=== PATIENT | male | born 1960 | race Caucasian/White ===

== ENCOUNTER 2017-01-31 08:33 | Emergency (ER) | payer OTHER ==
[2017-01-31 08:45] VITALS: RESP 20; O2SAT 100
[2017-01-31 09:44] LABS: RBC URINE 13 /hpf (0-3); URINE BACTERIA RARE (<OCC); URINE BILIRUBIN NEGATIVE (NEGATIVE); URINE BLOOD 3+ (NEGATIVE); URINE COLOR Straw (YELLOW); URINE GLUCOSE (UA) NORMAL (Normal); URINE KETONE NEGATIVE (NEGATIVE); URINE LEUKOCYTE ESTERASE 1+ Leu/uL (Negative); URINE PROTEIN NEGATIVE (NEGATIVE); URINE UROBILINOGEN NORMAL mg/dL (0.2-1.0); WBC CLUMPS RARE /hpf
[2017-01-31 10:09] LABS: WBC URINE 56 /hpf (0-5)
--- NOTE | 2017-01-31 10:19 | C.PDOC ---
History Of Present Illness 56 yr old male presents to the with complaint of hematuria since last night. Patient states its painless and has passed some clots. Reports similar episode 1 month ago, was seen in ED, had a normal CAT scan and was discharged on Cipro. Patient states the symptoms resolved with the use of Cipro in 1-2 days and has been fine till last night. Patient denies fever, chills, nausea, vomiting, abdominal pain, diarrhea, dysuria, incontinence, weakness or numbness. Time Seen by Provider: 01/31/17 08:43 Chief Complaint (Nursing): Male Genitourinary History Per: Patient History/Exam Limitations: no limitations Onset/Duration Of Symptoms: Days (1) Current Symptoms Are (Timing): Still Present Severity: None Quality Of Discomfort: denies: "Pain" Associated Symptoms: denies: Fever, Diarrhea, Back Pain Past Medical History Reviewed: Historical Data, Nursing Documentation, Vital Signs Vital Signs: Last Vital Signs Temp 98.4 F 01/31/17 10:28 Pulse 69 01/31/17 10:28 Resp 20 01/31/17 10:28 BP 139/86 01/31/17 10:28 Pulse Ox 100 01/31/17 11:15 - Medical History PMH: No Chronic Diseases Surgical History: Hernia Repair Family History: States: No Known Family Hx - Social History Hx Alcohol Use: Yes Hx Substance Use: No Review Of Systems Except As Marked, All Systems Reviewed And Found Negative. Constitutional: Negative for: Fever, Chills Gastrointestinal: Negative for: Nausea, Vomiting, Abdominal Pain, Diarrhea Genitourinary: Positive for: Hematuria. Negative for: Dysuria, Incontinence Neurological: Negative for: Weakness, Numbness Physical Exam - Physical Exam Appears: Well, Non-toxic, No Acute Distress Skin: Normal Color, Warm, Dry, No Rash Head: Atraumatic, Normacephalic Cardiovascular: Rhythm Regular, No Murmur Respiratory: Normal Breath Sounds, No Rales, No Rhonchi, No Wheezing Gastrointestinal/Abdominal: Normal Exam, Soft, No Tenderness, No Guarding, No Rebound Back: Normal Inspection, No CVA Tenderness Extremity: Normal ROM, No Swelling Neurological/Psych: Oriented x3, Normal Speech, Normal Motor ED Course And Treatment O2 Sat by Pulse Oximetry: 100 Medical Decision Making Medical Decision Making: PLAN: * Urinalysis UA now (+) wbc few rbc's Culture last month neg Will cover with abx as wbc's much higher today however pt urged to follow up with uro contact information given Disposition Counseled Patient/Family Regarding: Diagnosis, Need For Followup - Disposition Referrals: Nicolasa Giron MD [Staff Provider] - Disposition: HOME/ ROUTINE Disposition Time: 10:17 Condition: GOOD Prescriptions: Nitrofurantoin Macrocrystals [Macrobid] 1 cap PO BID #14 cap Instructions: Urinary Tract Infection in Men (ED) - Clinical Impression Clinical Impression: Hematuria - Scribe Statement The provider has reviewed the documentation as recorded by the Scribe Alison Mendes Provider Attestation: All medical record entries made by the Scribe were at my direction and personally dictated by me. I have reviewed the chart and agree that the record accurately reflects my personal performance of the history, physical exam, medical decision making, and the department course for this patient. I have also personally directed, reviewed, and agree with the discharge instructions and disposition.
[2017-01-31 10:30] VITALS: BP 139/86; PULSE 69; TEMP 98.4
== END 2017-01-31 10:28 | disposition home or self-care (01) ==
LOC: C.ER 08:33
DX: R31.9 Hematuria, unspecified (principal)

== ENCOUNTER 2017-02-21 11:46 | Emergency (ER) | payer SELFPAY ==
[2017-02-21 12:26] LABS: RBC URINE 17 /hpf (0-3); URINE BACTERIA RARE (<OCC); URINE BILIRUBIN NEGATIVE (NEGATIVE); URINE BLOOD 3+ (NEGATIVE); URINE COLOR Straw (YELLOW); URINE GLUCOSE (UA) NORMAL (Normal); URINE KETONE NEGATIVE (NEGATIVE); URINE LEUKOCYTE ESTERASE TRACE Leu/uL (Negative); URINE PROTEIN NEGATIVE (NEGATIVE); URINE UROBILINOGEN NORMAL mg/dL (0.2-1.0); WBC URINE 13 /hpf (0-5)
--- NOTE | 2017-02-21 12:51 | C.PDOC ---
History Of Present Illness 56-year-old male, presents to the emergency department with complaints of right- sided flank pain x2 days. States he has associated hematuria with blood clots, and has been seen in ED for similar symptoms several weeks ago. Patient reports that he was discharged on antibiotics and follow-up with urology, but has been unable to follow-up. Denies fevers, chills, shortness of breath, dysuria, frequency, or any other associated symptoms. No other complaints at this time. Time Seen by Provider: 02/21/17 12:13 Chief Complaint (Nursing): Male Genitourinary History Per: Patient History/Exam Limitations: no limitations Onset/Duration Of Symptoms: Intermittent Episodes Current Symptoms Are (Timing): Still Present Pain Scale Rating Of: 1 Alleviating Factors: None Recent travel outside of the [place]: No Additional History Per: Patient (Patient reports that he has no pain now only hematuria) Past Medical History Reviewed: Historical Data, Nursing Documentation, Vital Signs Vital Signs: Last Vital Signs Temp 98.2 F 02/21/17 16:22 Pulse 65 02/21/17 16:22 Resp 18 02/21/17 16:22 BP 113/72 02/21/17 16:22 Pulse Ox 100 02/21/17 16:22 Surgical History: Hernia Repair Family History: States: No Known Family Hx - Social History Hx Alcohol Use: Yes Hx Substance Use: No Review Of Systems Except As Marked, All Systems Reviewed And Found Negative. Constitutional: Negative for: Fever, Chills Cardiovascular: Negative for: Chest Pain Respiratory: Negative for: Shortness of Breath Gastrointestinal: Negative for: Vomiting Genitourinary: Positive for: Hematuria. Negative for: Dysuria, Scrotal Pain, Rash Musculoskeletal: Positive for: Back Pain Skin: Negative for: Rash Neurological: Negative for: Weakness, Numbness Physical Exam - Physical Exam Appears: Non-toxic, No Acute Distress Skin: Warm, Dry, No Rash Head: Atraumatic, Normacephalic Eye(s): bilateral: Normal Inspection Nose: Normal Oral Mucosa: Moist Lips: Normal Appearing Neck: Normal ROM Cardiovascular: Rhythm Regular Respiratory: Normal Breath Sounds, No Accessory Muscle Use Gastrointestinal/Abdominal: Soft, No Tenderness, No Guarding, No Rebound Extremity: Normal ROM Neurological/Psych: Oriented x3, Normal Speech ED Course And Treatment - Laboratory Results Result Diagrams: 02/21/17 12:49 02/21/17 12:49 O2 Sat by Pulse Oximetry: 99 (on RA) Pulse Ox Interpretation: Normal Progress Note: Results were discussed with the patient and was instructed that there is no UTI, but there is a ? lesion on the bladder and there is a strong need for urology follow up. Medical Decision Making Medical Decision Making: Plan: * CT Abd/Pel * CMP, Lipase * Urine Culture * Urinalysis Disposition - Disposition Referrals: [facility] [Outside] Matheus Martinez MD [Staff Provider] - Adelfo Giron MD [Staff Provider] - Disposition: HOME/ ROUTINE Disposition Time: 16:00 Condition: STABLE Additional Instructions: Follow up with the medical doctor within 1-2 days. return if worsened. Instructions: Acute Hematuria (ED) - Clinical Impression Clinical Impression: Cyst of left kidney, Hematuria - Scribe Statement The provider has reviewed the documentation as recorded by the Zacibmalena Mercedes All medical record entries made by the Scribe were at my direction and personally dictated by me. I have reviewed the chart and agree that the record accurately reflects my personal performance of the history, physical exam, medical decision making, and the department course for this patient. I have also personally directed, reviewed, and agree with the discharge instructions and disposition.
[2017-02-21 12:55] LABS: BASO % 0.7 % (0.0-2.0); EOS # 0.2 K/uL (0.0-0.7); EOS % 3.1 % (0.0-4.0); HEMATOCRIT 41.1 % (35.0-51.0); LYMPH # 0.9 K/uL (1.0-4.3); LYMPH % 12.5 % (20.0-40.0); MEAN CELL VOLUME 83.6 fL (80.0-94.0); MEAN CORPUSCULAR HEMOGLOBIN 27.2 pg (27.0-31.0); MEAN CORPUSCULAR HGB CONC 32.5 g/dL (33.0-37.0); MEAN PLATELET VOLUME 7.5 fL (7.2-11.7); MONO # 0.4 K/uL (0.0-0.8); MONO % 5.2 % (0.0-10.0); RED CELL DISTRIBUTION WIDTH 13.4 % (11.5-14.5); WHITE BLOOD COUNT 6.9 K/uL (4.8-10.8)
[2017-02-21 13:02] LABS: CHLORIDE 100 mmol/L (98-107)
[2017-02-21 13:03] LABS: POTASSIUM 3.9 mmol/L (3.6-5.2); SODIUM 139 mmol/L (132-148)
[2017-02-21 13:05] LABS: ALB/GLOB RATIO 1.3 (1.0-2.1); ALKALINE PHOSPHATASE 92 U/L (38-126); ALT/SGPT 19 U/L (21-72); AST/SGOT 27 U/L (17-59); BILIRUBIN,TOTAL 0.2 mg/dL (0.2-1.3); BLOOD UREA NITROGEN 13 mg/dL (9-20); CARBON DIOXIDE 24 mmol/L (22-30); GFR AFRICAN-AMERICAN > 60; GLUCOSE,RANDOM 122 mg/dL (75-110)
[2017-02-21 13:51] VITALS: TEMP 98.2
[2017-02-21] MEDS ORDERED: Iodixanol 320 MG/ML 100 ML BOTTLE IV ONE (13:59)
--- NOTE | 2017-02-21 15:33 | CT ---
PROCEDURE: CT Abdomen and Pelvis with Oral contrast. HISTORY: gross hematuria, COMPARISON: Comparison made with CT scan abdomen pelvis 12/19/2016 TECHNIQUE: Contiguous axial images of the abdomen and pelvis. . 100 cc Visipaque contrast material. Coronal and Sagittal reformats generated. Radiation dose: Total exam DLP = 218.74 mGy-cm. This CT exam was performed using one or more of the following dose reduction techniques: Automated exposure control, adjustment of the mA and/or kV according to patient size, and/or use of iterative reconstruction technique. FINDINGS: LOWER THORAX: Unremarkable. LIVER: Liver exhibits normal size. Mild fatty hepatic infiltration. . No gross lesion or ductal dilatation. GALLBLADDER AND BILE DUCTS: Unremarkable. PANCREAS: Unremarkable. No mass. No ductal dilatation. SPLEEN: Unremarkable. No splenomegaly. ADRENALS: Unremarkable. KIDNEYS AND URETERS: Re- demonstrated is a large approximately 4.8 cm partially exophytic cyst lower pole left kidney with minimal mural calcification. There may be a the thin septation along the inferior border adjacent to the mural calcification BLADDER: Urinary bladder is incompletely distended which may account for thick-walled appearance however muscular hypertrophy likely contributes. Cystitis not excluded. Note that the distinction between the wall thickness of the liver and pancreas is slightly poorly defined and therefore the possibility of a bladder wall lesion not completely excluded. REPRODUCTIVE: Prostate gland is enlarged with calcifications. Correlation with PSA recommended APPENDIX: Not identified. No secondary findings to suggest acute appendicitis. . BOWEL: Mild constipation. PERITONEUM: Unremarkable. No fluid collection. No free air. Fat containing left inguinal hernia LYMPH NODES: Unremarkable. No enlarged lymph nodes. VASCULATURE: Unremarkable. No aortic aneurysm. BONES: No fracture or destructive lesion. OTHER FINDINGS: None. IMPRESSION: Large cyst left kidney with minimal mural calcification and possible septated component. No evidence of nephrolithiasis or hydronephrosis . Questionable tiny cortical cyst mid/upper pole right kidney Urinary bladder is incompletely distended which may account for thick-walled appearance however muscular hypertrophy likely contributes. Cystitis not excluded. Note that the distinction between the wall thickness of the liver and pancreas is slightly poorly defined and therefore the possibility of a bladder wall lesion not completely excluded. Enlarged prostate gland. Correlation with PSA recommended Constipation. Left inguinal hernia
[2017-02-21 16:23] VITALS: BP 113/72; PULSE 65; RESP 18
[2017-02-21 18:21] VITALS: O2SAT 99
== END 2017-02-21 16:24 | disposition home or self-care (01) ==
LOC: C.ER 11:46
DX: N28.1 Cyst of kidney, acquired (principal); R31.9 Hematuria, unspecified
CPT/HCPCS: 74177; 80053; 81001; 83690; 85025; 87086; 99285; Q9967

== ENCOUNTER 2017-03-19 14:15 | Day surgery (SDC) | payer OTHER ==
[2017-03-18 14:06] VITALS: BMI 17.4
[~2017-03-19 14:15] MED LIST: Gentamicin 80 mg in 0.9% NS 80 MG/100 ML BAG IVPB ONE; Lactated Ringer's 1,000 ML IV ONE; Midazolam 2 MG/2 ML VIAL ONE; Propofol 10 mg/ml Inj (20 ML) ONE; cefTRIAXone IV 1 gm in Dextros 50 ML IVPB ONE
[2017-03-19 19:56] VITALS: TEMP 97.8; O2SAT 100
[2017-03-19 20:05] VITALS: BP 154/88; PULSE 79; RESP 13
--- NOTE | 2017-03-29 17:39 | HP ---
REASON FOR ADMISSION: Hematuria workup. A very pleasant gentleman who has significant voiding dysfunction, decreased flow of stream, nocturia . He is only 56 years old. He had gross hematuria. We discussed options for the patient. We discu ssed various options, risks, benefits, treatment alternatives. He is here now for cystoscope. We discussed doing it in the office. We tried even. The patient was very uncomfortable, so we broug ht him to the hospital. PAST MEDICAL AND SURGICAL HISTORY: As listed above. No history of an AR or CVA. SOCIAL HISTORY: Unremarkable. REVIEW OF SYSTEMS: As above. PHYSICAL EXAMINATION: GENERAL: Well-nourished male, in no apparent distress. VITAL SIGNS: . LUNGS: Clear. ABDOMEN: Overall soft, nontender. No flank mass. GENITALIA: Normal male phallus . LABORATORIES: See chart. DIAGNOSES: Hematuria, voiding dysfunction, decreased flow of stream, nocturia. A very pleasant 56-year-old gentleman. He is here for further diagnostic . The big issue for u s is the hematuria workup, make sure he does not have underlying malignancy upper tract imaging . Further plans will follow depending on what we find clinically. Risks, benefits . PLAN: 1. Antibiotic prophylaxis. 2. Cystoscope and then further plans will follow. Garfield Giron MD cc: [id number] TT: 03/29/2017 17:39:33 en
--- NOTE | 2017-03-31 07:45 | OP ---
PROCEDURE DATE: 03/19/2017 PREOPERATIVE DIAGNOSES: Hematuria, voiding dysfunction. POSTOPERATIVE DIAGNOSES: Hematuria, voiding dysfunction. PROCEDURE: Cystoscopy. SURGEON: Dr. Garfield Giorn. COMPLICATIONS: None. FINDINGS: Normal anterior urethra, no strictures. Ureter is moderately visually occlusive about 2-3 cm in length. There were no bladder cancers or tumors. INDICATIONS: See the history and physical for the details. Very pleasant gentleman here for the abo ve procedure. We discussed options including the office, etc. He is here now for the above procedur e. We also have upper tract imaging. He had had one episode of gross hematuria. DESCRIPTION OF PROCEDURE: After obtaining informed consent, the patient placed on the table, routine monitors placed, timeouts were called to confirm patient and positioning. Cystoscope via urethra. Anterior is normal. No strictures. , it was visually occlusive, about 2-3 cm. Bladder was ins pected carefully. No bladder tumors. . The patient tolerated the procedure without complication. Garfield Giron MD cc: [id number] TT: 03/29/2017 16:38:30 ms
== END 2017-03-19 15:30 | disposition home or self-care (01) ==
LOC: C.SDS 14:15
PROVIDERS: ATTEND Urology
DX: R31.9 Hematuria, unspecified (principal); N28.9 Disorder of kidney and ureter, unspecified; N20.9 Urinary calculus, unspecified
CPT/HCPCS: 52000; J1580; J1885; J7120

== ENCOUNTER 2017-04-13 11:12 | Day surgery (SDC) | payer OTHER ==
[2017-03-18 14:05] VITALS: BMI 17.4
[2017-04-13] MEDS ORDERED: Midazolam 2 MG/2 ML VIAL ONE (13:13)
[2017-04-13] MEDS ORDERED: Propofol 10 mg/ml Inj (20 ML) ONE (13:13)
[2017-04-13] MEDS ORDERED: ceFAZolin IV 1 gm in Dextrose 0 GM/0 ML BAG IVPB ONE (13:34)
[2017-04-13] MEDS ORDERED: Bupivacaine/Epi 0.25%-1:200,000 10 ml PF inj IJ ONE (13:35)
[2017-04-13] MEDS ORDERED: Lidocaine 1% Inj (20ml) ONE (13:35)
[2017-04-13] MEDS ORDERED: ceFAZolin IV 2 gm in Dextrose 1 GM/50 ML BAG IVPB ONE (14:05)
[2017-04-13] MEDS ORDERED: Lactated Ringer's 1,000 ML IV ONE (14:18)
[2017-04-13] MEDS ORDERED: HYDROmorphone 0.5 mg/0.5 ml ISec IVP PRN (14:58)
[2017-04-13] MEDS ORDERED: Dexamethasone 4 mg/1 ml IVP PRN (16:22)
--- NOTE | 2017-04-13 16:22 | PCM.SURG1 ---
Surgeon's Initial Post Op Note - Surgeon's Notes Surgeon: Dr Bianchi Student Services Advisor: Dr Ford PGY2 Type of Anesthesia: General Endo Pre-Operative Diagnosis: left recurrent inguinal hernia Operative Findings: as above Post-Operative Diagnosis: as above Operation Performed: laparoscopic totally extra-peritoneal left inguinal hernia repair with mesh Specimen/Specimens Removed: none Estimated Blood Loss: EBL {In ML}: 10 Blood Products Given: N/A Drains Used: No Drains Post-Op Condition: Good Date of Surgery/Procedure: 04/13/17 Time of Surgery/Procedure: 16:21
[2017-04-13] MEDS ORDERED: Lactated Ringer's 1,000 ML IV SCH (16:30)
[2017-04-13] MEDS: HYDROmorphone 0.5 mg/0.5 ml ISec IVP PRN ×3 (16:31→17:36)
[2017-04-13 19:32] VITALS: BP 128/63; PULSE 72; RESP 10; TEMP 98.2; O2SAT 99
--- NOTE | 2017-04-13 21:23 | OP ---
PROCEDURE DATE: 04/13/2017 INTRAOPERATIVE FINDINGS: The patient had the left recurrent direct and indirect inguinal hernia PREOPERATIVE DIAGNOSIS: Left recurrent inguinal hernia. POSTOPERATIVE DIAGNOSIS: Left recurrent inguinal hernia. PROCEDURE DONE: Laparoscopic Left recurrent inguinal hernia repair with mesh. SURGEON: Konstantin Bianchi MD RACK ROOM WORKER: Levi Ford, PGY-2 resident. ANESTHESIA: Local anesthesia plus GETA. ESTIMATED BLOOD LOSS: Around 10 mL. DRAINS: None. PATHOLOGY: None COMPLICATIONS: None. INTRAOPERATIVE STEPS: This 56-year-old male who was diagnosed with left recurrent inguinal hernia and the patient was consented for a laparoscopic left recurrent inguinal hernia repair with the mesh. Brought to the OR, placed supine on the operating table. After induction of anesthesia, a Rod catheter and an OG tube was placed. The abdomen was prepped and draped in the usual sterile fashion. Infraumbilical transverse incision was made. After incising skin and subcutaneous tissue, the fascia was incised and retrorectus dissection was done and a balloon dissector was placed and pneumo was created in extraperitoneal space. Two 5 mm ports were placed in the midline and the dissection was carried down medially in the space of Retzius and the pubic symphysis laterally to the lateral abdominal wall and the peritoneal sac and the superior and inferior epigastric artery was identified and the peritoneal sac was reduced back. The patient found to have direct and indirect both hernia , and after complete dissection of the peritoneal sac, the left anatomical mesh was implanted. After proper implantation of the mesh, the pneumo was deflated and the umbilical port site was closed in 2 layers, the fascia with 0 Vicryl interrupted sutures, the skin with a 4-0 Monocryl. Dry sterile dressing was applied. The patient tolerated the procedure well. Count of instruments and gauze was correct. There was no apparent complication. Konstantin Bianchi MD cc: [id number] TT: 04/13/2017 21:22:12 jerry MARIE
== END 2017-04-13 19:00 | disposition hospice, home (50) ==
LOC: C.SDS 11:12
PROVIDERS: ATTEND Surgery Surgical Critical Care
DX: K40.91 Unilateral inguinal hernia, without obstruction or gangrene, recurrent (principal); N39.0 Urinary tract infection, site not specified; N28.1 Cyst of kidney, acquired; Z98.890 Other specified postprocedural states; Z79.2 Long term (current) use of antibiotics
CPT/HCPCS: 49651; J0690; J1170; J1885; J2250; J2704; J3010; J7120

== ENCOUNTER 2018-10-21 11:54 | Emergency (ER) | payer OTHER ==
[2018-10-21 11:55] VITALS: BMI 17.4
[2018-10-21 12:11] VITALS: TEMP 98
--- NOTE | 2018-10-21 12:55 | C.PDOC ---
History Of Present Illness 58 y/o male, w/PMhx of hematuria and renal cysts presents to the ER complaining of hematuria with clots which has been present for the past 2 days.Patient states that he has associated intermittent right flank pain. He is not taking any medications for the pain. He notes that he had similar symptoms last year. At the time, he was diagnosed with a kidney cyst and had a negative cystoscopy performed by Dr. Chaitanya Giron. Currently, patient denies having abdominal pain, dysuria, frequency, nausea, vomiting, CP, SOB, fever, chills, testicular pain, testicular swelling, or any other associated symptoms. Time Seen by Provider: 10/21/18 12:10 Chief Complaint (Nursing): Male Genitourinary History Per: Patient History/Exam Limitations: no limitations Onset/Duration Of Symptoms: Days Current Symptoms Are (Timing): Still Present Severity: Moderate Past Medical History Reviewed: Historical Data, Nursing Documentation, Vital Signs Vital Signs: Last Vital Signs Temp 98 F 10/21/18 12:06 Pulse 97 H 10/21/18 12:06 Resp 18 10/21/18 12:06 BP 161/84 H 10/21/18 12:06 Pulse Ox 100 10/21/18 12:06 - Medical History PMH: No Chronic Diseases Denies: Chronic Kidney Disease Surgical History: Hernia Repair Family History: States: No Known Family Hx - Social History Hx Alcohol Use: Yes Hx Substance Use: No - Immunization History Hx Tetanus Toxoid Vaccination: No Hx Influenza Vaccination: No Hx Pneumococcal Vaccination: No Review Of Systems Except As Marked, All Systems Reviewed And Found Negative. Constitutional: Negative for: Fever, Chills Eyes: Negative for: Vision Change ENT: Negative for: Nose Congestion Cardiovascular: Negative for: Chest Pain, Palpitations Respiratory: Negative for: Cough, Shortness of Breath Gastrointestinal: Negative for: Nausea, Vomiting, Abdominal Pain (currently resolved), Diarrhea Genitourinary: Positive for: Hematuria. Negative for: Dysuria, Frequency Skin: Negative for: Rash Neurological: Negative for: Weakness, Numbness (right flank pain), Headache, Dizziness Physical Exam - Physical Exam Appears: Well, Non-toxic, No Acute Distress Skin: Normal Color, Warm, Dry Head: Atraumatic, Normacephalic Eye(s): bilateral: Normal Inspection, PERRL, EOMI Nose: Normal Oral Mucosa: Moist Throat: Normal Neck: Normal, Normal ROM, Supple Chest: Symmetrical Cardiovascular: Rhythm Regular Respiratory: Normal Breath Sounds, No Rales, No Rhonchi, No Wheezing Gastrointestinal/Abdominal: Normal Exam, Bowel Sounds (normal), Soft, No Tenderness, No Guarding, No Rebound Back: Normal Inspection, No CVA Tenderness, No Paraspinal Tenderness Extremity: Normal ROM, No Tenderness, Capillary Refill (<2s), No Deformity, No Swelling Extremity: Bilateral: Atraumatic, No Pedal Edema, Normal Color And Temperature, Normal ROM Pulses: Left Radial: Normal, Right Radial: Normal Neurological/Psych: Oriented x3, Normal Speech, Normal Cognition, Normal Cranial Nerves, Normal Motor, Normal Sensation Gait: Steady ED Course And Treatment - Laboratory Results Result Diagrams: 10/21/18 13:15 10/21/18 13:15 Lab Interpretation: Normal O2 Sat by Pulse Oximetry: 100 (RA) Pulse Ox Interpretation: Normal - CT Scan/US CT- Abd & Pelv. Other Rad Studies (CT/US): Read By Radiologist, Radiology Report Reviewed CT/US Interpretation: PROCEDURE: CT Abdomen and Pelvis without Oral or IV contrast. HISTORY: stone search; bilateral intermittent flank pain. COMPARISON: CT abdomen pelvis without and with IV contrast performed 09/09/17. TECHNIQUE: Contiguous axial images of the abdomen and pelvis. No oral or IV contrast administered. Coronal and Sagittal reformats generated and reviewed. Radiation dose: Total exam DLP = 239.73 mGy-cm. This CT exam was performed using one or more of the following dose reduction techniques: Automated exposure control, adjustment of the mA and/or kV according to patient size, and/or use of iterative reconstruction technique. FINDINGS: There is limited evaluation of the solid organs without the administration of IV contrast. LOWER THORAX: No visible consolidation, pleural effusion, or pneumothorax. LIVER: Unremarkable unenhanced appearance. GALLBLADDER AND BILE DUCTS: Unremarkable unenhanced appearance. PANCREAS: Unremarkable unenhanced appearance. SPLEEN: Unremarkable unenhanced appearance. ADRENALS: Unremarkable unenhanced appearance. KIDNEYS AND URETERS: No hydronephrosis or obstructing renal calculus. Indeterminate 4 x 5.4 cm low-density mass arising from the lower pole kidney, with associated calcification. BLADDER: Soft tissue or debris within the dependent portion of the urinary bladder. Urinary bladder appears thick walled despite distension. REPRODUCTIVE: Enlarged prostate gland containing calcifications. APPENDIX: The appendix appears within normal limits of caliber. No secondary signs of acute appendicitis. BOWEL: The stomach is nondi stended. Lack of oral contrast limits evaluation for bowel pathology. The bowel loops appear within normal limits of caliber without evidence of intestinal obstruction. PERITONEUM: No significant free fluid. No definite free air. LYMPH NODES: No bulky lymphadenopathy identified. VASCULATURE: Atherosclerotic calcifications of the aorta. No aortic aneurysm. BONES: No acute osseous abnormality is detected. OTHER FINDINGS: Surgical clips left inguinal region. IMPRESSION: Soft tissue or debris within the dependent portion of the urinary bladder. Urinary bladder appears thick walled despite distension. Recommend correlation with urinalysis and or cystoscopy if indicated. Indeterminate 4 x 5.4 cm low-density mass arising from the lower pole kidney, with associated calcification. Enlarged prostate gland. Recommend correlation with PSA. Additional findings as above. Medical Decision Making Medical Decision Making: Plan: --Labs --UA --Urine Culture --CT- Abd & Pelv Spoke with Dr. Henriquez, about case and diagnostic testing results, advises that patient should followup outpatient for cystoscopy. Diagnostic testing results and plan of care discussed with patient, and strict instructions given regarding prescriptions, importance of follow up, and signs to return to Emergency Department, to include worsening pain, fever, chills, or any other new/worsening symptoms. Patient verbalizes understanding of discussion. Patient A&Ox3, ambulating with steady gait, stable for discharge home. Disposition - Disposition Referrals: Adelfo Giron MD [Staff Provider] - Disposition: HOME/ ROUTINE Disposition Time: 15:00 Condition: GOOD Additional Instructions: Followup with Dr. Giron today for evaluation of hematuria, bladder wall thickening, and PSA check Return to ER for any new/worsening symptoms Instructions: Blood in the Urine (Hematuria) in Adults Forms: [facility] (Angolan), Work Excuse - Clinical Impression Clinical Impression: Hematuria - PA / RISK CONTROL PRODUCT LIABILITY DIRECTOR / Resident Statement MD/DO has reviewed & agrees with the documentation as recorded. - Scribe Statement The provider has reviewed the documentation as recorded by the Zacibe Ronnie Lara Provider Attestation All medical record entries made by the Scribe were at my direction and personally dictated by me. I have reviewed the chart and agree that the record accurately reflects my personal performance of the history, physical exam, medical decision making, and the department course for this patient. I have also personally directed, reviewed, and agree with the discharge instructions and disposition.
[2018-10-21 13:31] LABS: BASO % 0.6 % (0.0-2.0); EOS # 0.2 K/uL (0.0-0.7); EOS % 2.9 % (0.0-4.0); HEMOGLOBIN 14.1 g/dL (12.0-18.0); LYMPH # 0.9 K/uL (1.0-4.3); LYMPH % 15.8 % (20.0-40.0); MEAN CORPUSCULAR HEMOGLOBIN 28.4 pg (27.0-31.0); MEAN CORPUSCULAR HGB CONC 33.4 g/dL (33.0-37.0); MONO # 0.4 K/uL (0.0-0.8); MONO % 6.4 % (0.0-10.0); NEUT # 4.4 K/uL (1.8-7.0); NEUT % 74.3 % (50.0-75.0); RBC 4.98 Mil/uL (4.40-5.90); RED CELL DISTRIBUTION WIDTH 14.3 % (11.5-14.5); WHITE BLOOD COUNT 5.8 K/uL (4.8-10.8)
[2018-10-21 13:34] LABS: URINE BILIRUBIN NEGATIVE (NEGATIVE); URINE CLARITY Clear (Clear); URINE COLOR Red (YELLOW); URINE GLUCOSE (UA) 1+ mg/dL (Normal); URINE LEUKOCYTE ESTERASE NEG Leu/uL (Negative); URINE PROTEIN 2+ mg/dL (NEGATIVE); URINE UROBILINOGEN NORMAL mg/dL (0.2-1.0)
[2018-10-21 13:35] LABS: URINE BLOOD 3+ (NEGATIVE)
[2018-10-21 13:40] LABS: MEAN CELL VOLUME 84.8 fL (80.0-94.0)
--- NOTE | 2018-10-21 13:45 | CT ---
PROCEDURE: CT Abdomen and Pelvis without Oral or IV contrast. HISTORY: stone search; bilateral intermittent flank pain COMPARISON: CT abdomen pelvis without and with IV contrast performed 09/09/17 TECHNIQUE: Contiguous axial images of the abdomen and pelvis. No oral or IV contrast administered. Coronal and Sagittal reformats generated and reviewed. Radiation dose: Total exam DLP = 239.73 mGy-cm. This CT exam was performed using one or more of the following dose reduction techniques: Automated exposure control, adjustment of the mA and/or kV according to patient size, and/or use of iterative reconstruction technique. FINDINGS: There is limited evaluation of the solid organs without the administration of IV contrast. LOWER THORAX: No visible consolidation, pleural effusion, or pneumothorax. LIVER: Unremarkable unenhanced appearance. GALLBLADDER AND BILE DUCTS: Unremarkable unenhanced appearance. PANCREAS: Unremarkable unenhanced appearance. SPLEEN: Unremarkable unenhanced appearance. ADRENALS: Unremarkable unenhanced appearance. KIDNEYS AND URETERS: No hydronephrosis or obstructing renal calculus. Indeterminate 4 x 5.4 cm low-density mass arising from the lower pole kidney, with associated calcification. BLADDER: Soft tissue or debris within the dependent portion of the urinary bladder. Urinary bladder appears thick walled despite distension. REPRODUCTIVE: Enlarged prostate gland containing calcifications. APPENDIX: The appendix appears within normal limits of caliber. No secondary signs of acute appendicitis. BOWEL: The stomach is nondistended. Lack of oral contrast limits evaluation for bowel pathology. The bowel loops appear within normal limits of caliber without evidence of intestinal obstruction. PERITONEUM: No significant free fluid. No definite free air. LYMPH NODES: No bulky lymphadenopathy identified. VASCULATURE: Atherosclerotic calcifications of the aorta. No aortic aneurysm. BONES: No acute osseous abnormality is detected. OTHER FINDINGS: Surgical clips left inguinal region. IMPRESSION: Soft tissue or debris within the dependent portion of the urinary bladder. Urinary bladder appears thick walled despite distension. Recommend correlation with urinalysis and or cystoscopy if indicated. Indeterminate 4 x 5.4 cm low-density mass arising from the lower pole kidney, with associated calcification. Enlarged prostate gland. Recommend correlation with PSA. Additional findings as above.
[2018-10-21 13:46] LABS: ALB/GLOB RATIO 1.4 (1.0-2.1); ALBUMIN 4.5 g/dL (3.5-5.0); ALT/SGPT 33 U/L (21-72); AST/SGOT 40 U/L (17-59); BLOOD UREA NITROGEN 14 mg/dL (9-20); CALCIUM 9.4 mg/dl (8.6-10.4); GFR NON-AFRICAN AMERICAN > 60; INR 1.2; LIPASE 113 U/L (23-300); PROTHROMBIN TIME 13.4 SECONDS (9.7-12.2)
[2018-10-21 15:18] VITALS: BP 138/76; PULSE 77; RESP 14
[2018-10-22 04:23] VITALS: O2SAT 100
== END 2018-10-21 15:16 | disposition home or self-care (01) ==
LOC: C.ER 11:54
DX: R31.9 Hematuria, unspecified (principal)

== ENCOUNTER 2019-01-05 09:52 | Outpatient (CLI) | payer SELFPAY | END 2019-01-05 09:53 | disposition home or self-care (01) | LOC: C.CTH 09:52 ==

== ENCOUNTER 2019-01-11 08:32 | Outpatient (CLI) | payer OTHER, SELFPAY | END 2019-01-27 09:57 | disposition home or self-care (01) | LOC: C.MRIC 08:32 ==

== ENCOUNTER → 2019-02-08 | Outpatient (CLI) | payer OTHER | END | disposition home or self-care (01) | LOC: C.LAB 11:39 | DX: Z01.818 Encounter for other preprocedural examination (principal); R31.9 Hematuria, unspecified; R33.9 Retention of urine, unspecified ==

== ENCOUNTER 2019-02-10 08:48 | Day surgery (SDC) | payer OTHER ==
[2019-02-09 12:42] VITALS: BMI 20.2
[2019-02-10] MEDS ORDERED: cefTRIAXone 1 gm 0 GM/0 ML BAG IVPB ONE (11:56)
[2019-02-10] MEDS ORDERED: Lidocaine 2% Jelly (Uro-Jet) ONE ×2 (11:56→14:57)
[2019-02-10] MEDS ORDERED: Propofol 10 mg/ml Inj (20 ML) ONE ×2 (14:56→15:11)
[2019-02-10] MEDS ORDERED: Midazolam 2 MG/2 ML VIAL ONE ×2 (14:57→15:10)
[2019-02-10] MEDS ORDERED: cefTRIAXone 1 gm 1 GM/100 ML BAG IVPB ONE (14:57)
[2019-02-10] MEDS ORDERED: Lactated Ringer's 500 ML IV ONE ×2 (15:28)
[2019-02-10] MEDS ORDERED: Oxycodone/Acetaminophen 5/325 mg Tab PO PRN (15:33)
[2019-02-10] MEDS ORDERED: HYDROmorphone 0.5 mg/0.5 ml ISec IVP PRN (15:38)
[2019-02-10] MEDS ORDERED: Gentamicin 80 mg in 0.9% NS 80 MG/100 ML BAG IVPB ONE (15:48)
[2019-02-10] MEDS ORDERED: Gentamicin 80 mg in 0.9% NS 80 MG/100 ML BAG IVPB SCH (16:00)
[2019-02-10 16:24] VITALS: TEMP 98
[2019-02-10 16:47] VITALS: BP 137/80; PULSE 88; RESP 18; O2SAT 100
--- NOTE | 2019-02-16 08:23 | OP ---
PROCEDURE DATE: 02/10/2019 UROLOGY OPERATIVE REPORT PREOPERATIVE DIAGNOSES: Repeated bouts of gross hematuria, elevated prostate-specific antigen, voiding dysfunction, and a renal mass. POSTOPERATIVE DIAGNOSES: Repeated bouts of gross hematuria, elevated prostate-specific antigen, voiding dysfunction, and a renal mass. PROCEDURE: Ultrasound of the prostate and an ultrasound-guided prostate biopsy. SURGEON: Garfield Giron MD SPECIMEN OBTAINED: Prostate cores. ESTIMATED BLOOD LOSS: Less than 10 mL. COMPLICATIONS: There were no complications. Total of 12 cores were sent. INDICATIONS: See the history and physical for further details. A very pleasant but somewhat noncompliant gentleman who I am very concerned for underlying malignancy. He has renal mass as well as hematuria. He needs a cystoscopy to rule out any bladder malignancy and he also has an elevated PSA, so today we are working up the prostate. Further plans, we will follow. Indeed he may need a biopsy for his kidney to be done by a special radiologist. He is very pleasant about the matter that he is somewhat difficult to get us to do all tests for various reasons. But we work through very closely with patient and trying to encourage him to allow diagnostic studies as dictated. DESCRIPTION OF PROCEDURE: After obtaining informed consent, the patient was placed on the table. Routine monitors were placed. Time-out was called to confirm the patient positioning. Antibiotic prophylactics were used. Time-out was called to confirm the patient. The patient was placed in a decubitus position. We used a BK 7.5 mHz probe inserted via the rectum. The probe was inserted via the rectum. Pictures were taken and sent The prostate volume measures to be about 30 mL. We now began our random biopsy. There was no specific hypoechoic lesion. There were prostatic calcifications, all within normal limits. Pictures were taken and saved. We now began our random biopsy with resection of left base, left mid, left apex, right base, right mid, and right apex, total of 12 cores sent, lateral medial, lateral medial, lateral medial, etc, are sent down. Post-biopsy rectal exam, within normal limits. The patient tolerated the procedure well without complications. ADDENDUM: We will have the patient followup in the office and then plan. Garfield Giron MD [facility] # [id number]
--- NOTE | 2019-02-16 16:49 | HP ---
UROLOGY ADMISSION HISTORY AND PHYSICAL REASON FOR ADMISSION: Prostate ultrasound and biopsy of his prostate. HISTORY OF PRESENT ILLNESS: He has gross hematuria. He had a renal mass that is in the middle of workup. Very pleasant matter, but somewhat difficult with compliance issues for various reasons. We are working on both the renal mass and his elevated PSA. Today he is here for an ultrasound of the prostate and ultrasound-guided prostate biopsy. Regarding his renal mass, we need to work on this too. It looks cystic, however, it is possible that is a cystic renal neoplasm. It needs further workup. He has voiding dysfunction, irritative and obstructive complaints; and he has, at the present, intermittent gross hematuria. The etiology for workup. We are working up for ruling out upper tract malignancy particularly and we are also working on his bladder cancer, we need to do a cystoscopy. Today, we are working on prostate cancer with an ultrasound of the prostate and ultrasound-guided prostate biopsy. I tried to explain this to the patient at great length with president [employer]. After doing so and discussing the options, he is here today for an ultrasound of the prostate and an ultrasound-guided prostate biopsy. PAST MEDICAL AND SURGICAL HISTORY: Listed on the chart. No history of an MD or CVA. On a social note, essentially otherwise unremarkable. REVIEW OF SYSTEMS: As above. No weight loss, chest pain, shortness of breath. No constitutional complaints. Regarding family history Regarding smoking history MEDICATIONS: See chart. ALLERGIES: SEE CHART. PHYSICAL EXAMINATION: GENERAL: A well-nourished male in no apparent distress. VITAL SIGNS: Within normal limits as included in the chart. LUNGS: Clear. HEART: Normal S1, S2. ABDOMEN: Overall soft and nontender. No flank mass appreciated. GENITOURINARY: Normal phallus. No testicular masses. RECTAL: 30 g prostate soft and smooth. All within relatively normal limits. LABORATORY DATA: See chart. PSA noted. DIAGNOSES: 1. Gross hematuria. 2. Elevated prostate-specific antigen. 3. Renal mass. ASSESSMENT AND PLAN: A very pleasant, somewhat noncompliant gentleman, very difficult to convince the above with more testing for various social, insurance, communication issues. Perhaps just some anxiety issue. But after discussing the options today, he is here for an ultrasound of the prostate and ultrasound-guided prostate biopsy and we are planning for antibiotic prophylaxis. And then further plans will follow. I explained this to the patient, but I also explained that he needs cystoscopy and he also needs further workup of his kidney, he may require a renal biopsy to be done by Interventional Radiology. After discussing The options with the patient, the plans today involved, 1. Antibiotic prophylaxis. 2. An ultrasound of the prostate. 3. An ultrasound-guided prostate biopsy and then further plans will follow. Garfield Giron MD
== END 2019-02-10 17:40 | disposition home or self-care (01) ==
LOC: C.SDS 08:48
PROVIDERS: ATTEND Urology
DX: R97.20 Elevated prostate specific antigen [PSA] (principal); R31.9 Hematuria, unspecified
CPT/HCPCS: 55700; 88305; 88312; J0696; J1580; J7120

== ENCOUNTER 2019-03-29 12:04 | Outpatient (CLI) | payer SELFPAY | END 2019-03-29 12:05 | disposition home or self-care (01) | LOC: C.LAB 12:04 ==

== ENCOUNTER 2019-03-30 09:07 | Outpatient (CLI) | payer SELFPAY | END 2019-03-30 09:08 | disposition home or self-care (01) | LOC: C.CTH 09:07 ==